=== PATIENT | male | born 1995 | race Caucasian/White ===

== ENCOUNTER 2017-07-24 10:14 | Emergency (ER) | payer BC ==
[~2017-07-24] VITALS: Ht 182.9 cm; Wt 75.0 kg
[2017-07-24 10:29] VITALS: BP 138/87; TEMP 98.3
[2017-07-24] MEDS ORDERED: MAGIC MOUTH PO (10:58)
[2017-07-24 11:20] VITALS: PULSE 61
== END 2017-07-24 11:18 | disposition home or self-care (01) ==
LOC: COL.ER 10:14
DX: K29.60 Other gastritis without bleeding (principal); K20.9 Esophagitis, unspecified; K22.6 Gastro-esophageal laceration-hemorrhage syndrome